=== PATIENT | female | born 1980 | race Caucasian/White ===

== ENCOUNTER 2017-08-24 11:34 | Emergency (ER) | payer OTHER ==
[2017-08-24] MEDS ORDERED: Sodium Chloride 0.9% 10 ML Syringe FLUSH PRN ×2 (12:23→13:45)
[2017-08-24] MEDS ORDERED: Morphine 2 MG/ML Syringe IVPUSH ONE ×2 (12:23→14:42)
[2017-08-24] MEDS ORDERED: Ondansetron 4 MG/2 ML SDV IVPUSH ONE (12:23)
[2017-08-24] MEDS ORDERED: Sodium Chloride 0.9% 1,000 ML IV ONE (12:23)
--- NOTE | 2017-08-24 12:44 | EDM.PDOC ---
<Evie Olvera - Last Filed: 08/24/17 12:28> ED HPI GENERAL MEDICAL PROBLEM - General Chief Complaint: Abdominal Pain Stated Complaint: LT SIDE PAIN Time Seen by Provider: 08/24/17 12:15 Source of Information: Reports: Patient History Limitations: Reports: No Limitations - History of Present Illness INITIAL COMMENTS - FREE TEXT/NARRATIVE: Patient is a 37 YO female who presents today for LLQ abdominal pain. The pain came on suddenly this morning around 0700. Described as a sharp stabbing pain. She states the intensity waxes and wanes but the pain is always there. Nothing is making the pain better. Any movement, lying flat, and ridding in the car on the way here made the pain worse. She reports nausea but no vomiting. She reports that she has been constipated with her last full BM being 3 days ago. She drank mag citrate this morning around 9 am and is now having diarrhea. She states this has not relieved the pain at all. She was able to eat a full meal last night with no pain. She denies blood in the stool. She does report history of kidney stone with previous stent placement. She states the current pain is different then what she experienced previously. She states she has been experiencing pain in the LLQ for about 6 months. She had a workup through primary care including blood work and CT scan. Per patient, everything was normal. She reports tubal ligation in 2012. LMP was 3 weeks ago. Left Abdomen Pain Score (Numeric/FACES): 8 - Related Data Allergies Allergy/AdvReac Type Severity Reaction Status Date / Time amoxicillin Allergy Airway Verified 08/24/17 11:44 Tightness Home Meds: Home Meds Cholecalciferol (Vitamin D3) [Vitamin D] 1,000 unit PO DAILY 08/24/17 [History] Montelukast [Singulair] 10 mg PO BEDTIME 08/24/17 [History] Omeprazole [priLOSEC OTC] 20 mg PO DAILY 08/24/17 [History] Vortioxetine Hydrobromide [Trintellix] 5 mg PO DAILY 08/24/17 [History] Zolpidem Tartrate [Ambien] 10 mg PO BEDTIME 08/24/17 [History] Past Medical History Gastrointestinal History: Reports: GERD Genitourinary History: Reports: Renal Calculus - Past Surgical History HEENT Surgical History: Reports: Adenoidectomy, Tonsillectomy Female Surgical History: Reports: Section, Ureteral Stent, Other ( See Below) (Tubal ligation 2012) Other Female Surgeries/Procedures: breast reduction Social & Family History - Tobacco Use Smoking Status *Q: Never Smoker - Caffeine Use Caffeine Use: Reports: Coffee, Soda - Recreational Drug Use Recreational Drug Use: No ED ROS GENERAL - Review of Systems Review Of Systems: See Below Constitutional: Reports: No Symptoms Respiratory: Reports: No Symptoms Cardiovascular: Reports: No Symptoms GI/Abdominal: Reports: Abdominal Pain, Constipation, Diarrhea, Nausea. Denies: Bloody Stool, Decreased Appetite, Distension, Vomiting : Reports: No Symptoms Musculoskeletal: Reports: No Symptoms Skin: Reports: No Symptoms Neurological: Reports: No Symptoms Psychiatric: Reports: No Symptoms ED EXAM, GI/ABD - Physical Exam Exam: See Below Exam Limited By: No Limitations General Appearance: Alert, WD/WN, Mild Distress Eyes: Bilateral: EOMI Head: Atraumatic Respiratory/Chest: No Respiratory Distress, Lungs Clear, Normal Breath Sounds Cardiovascular: Normal Peripheral Pulses, Regular Rate, Rhythm, No Murmur GI/Abdominal Exam: Normal Bowel Sounds, Soft, No Organomegaly, No Distention, Tender (LLQ below pelvic brim). No: Guarding, Rebound Back Exam: CVA Tenderness (L) (referred pain into LLQ), CVA Tenderness (R) ( referred pain into LLQ) Neurological: Alert, Oriented, CN II-XII Intact, Normal Cognition Psychiatric: Normal Affect, Normal Mood Skin Exam: Warm, Dry, Intact, Normal Color, No Rash Course - Vital Signs Last Recorded V/S: Last Vital Signs Temp 36.7 C 08/24/17 11:49 Pulse 89 08/24/17 11:49 Resp 20 08/24/17 11:49 BP 121/87 08/24/17 11:49 Pulse Ox 99 08/24/17 11:49 - Orders/Labs/Meds Orders: Active Orders 24 hr Category Date Time Status Peripheral IV Care [RC] . DIRECTED Care 08/24/17 12:25 Active UA W/MICROSCOPIC [URIN] Stat Lab 08/24/17 12:25 Ordered Peripheral IV Insertion Adult [OM.PC] Routine Oth 08/24/17 12:23 Ordered Labs: Laboratory Tests 04/0608/24/17 08/24/17 Range/Units 12:25 12:35 12:35 WBC 14.78 H (3.98-10.04) K/mm3 RBC 4.51 (3.98-5.22) M/mm3 Hgb 14.0 (11.2-15.7) gm/L Hct 42.0 (34.1-44.9) % MCV 93.1 (79.4-94.8) fl MCH 31.0 (25.6-32.2) pg MCHC 33.3 (32.2-35.5) g/dl RDW Std Deviation 42.9 (36.4-46.3) fL Plt Count 311 (182-369) K/mm3 MPV 9.8 (9.4-12.3) fl Neutrophils % (Manual) 69 H (40-60) % Band Neutrophils % 2 (0-10) % Lymphocytes % (Manual) 25 (20-40) % Atypical Lymphs % 0 % Monocytes % (Manual) 3 (2-10) % Eosinophils % (Manual) 1 (0.7-5.8) % Basophils % (Manual) 0 L (0.1-1.2) Platelet Estimate Adequate RBC Morph Comment Normal Sodium 140 (136-145) mEq/L Potassium 3.8 (3.5-5.1) mEq/L Chloride 103 (98-107) mEq/L Carbon Dioxide 28 (21-32) mEq/L Anion Gap 12.8 (5-15) BUN 15 (7-18) mg/dL Creatinine 0.8 (0.55-1.02) mg/dL Est Cr Clr Drug Dosing 92.72 mL/min Estimated GFR (MDRD) > 60 (>60) mL/min BUN/Creatinine Ratio 18.8 H (14-18) Glucose 98 (74-106) mg/dL Calcium 9.3 (8.5-10.1) mg/dL Total Bilirubin 0.6 (0.2-1.0) mg/dL AST 16 (15-37) U/L ALT 27 (14-59) U/L Alkaline Phosphatase 69 (46-116) U/L C-Reactive Protein (<1.0) mg/dL Total Protein 7.7 (6.4-8.2) g/dl Albumin 4.3 (3.4-5.0) g/dl Globulin 3.4 gm/dL Albumin/Globulin Ratio 1.3 (1-2) HCG, Qual (NEGATIVE) Urine Color Light yellow (Yellow) Urine Appearance Clear (Clear) Urine pH 7.5 (5.0-8.0) Ur Specific Zirconia 1.015 (1.005-1.030) Urine Protein Negative (Negative) Urine Glucose (UA) Negative (Negative) Urine Ketones Negative (Negative) Urine Occult Blood Negative (Negative) Urine Nitrite Negative (Negative) Urine Bilirubin Negative (Negative) Urine Urobilinogen 0.2 (0.2-1.0) Ur Leukocyte Esterase Negative (Negative) Urine RBC Not seen (0-5) /hpf Urine WBC 0-5 (0-5) /hpf Ur Epithelial Cells 5-10 H (0-5) /hpf Urine Bacteria Few (FEW) /hpf Urine Mucus Not seen (FEW) /hpf 08/24/17 08/24/17 Range/Units 12:35 12:35 WBC (3.98-10.04) K/mm3 RBC (3.98-5.22) M/mm3 Hgb (11.2-15.7) gm/L Hct (34.1-44.9) % MCV (79.4-94.8) fl MCH (25.6-32.2) pg MCHC (32.2-35.5) g/dl RDW Std Deviation (36.4-46.3) fL Plt Count (182-369) K/mm3 MPV (9.4-12.3) fl Neutrophils % (Manual) (40-60) % Band Neutrophils % (0-10) % Lymphocytes % (Manual) (20-40) % Atypical Lymphs % % Monocytes % (Manual) (2-10) % Eosinophils % (Manual) (0.7-5.8) % Basophils % (Manual) (0.1-1.2) Platelet Estimate RBC Morph Comment Sodium (136-145) mEq/L Potassium (3.5-5.1) mEq/L Chloride (98-107) mEq/L Carbon Dioxide (21-32) mEq/L Anion Gap (5-15) BUN (7-18) mg/dL Creatinine (0.55-1.02) mg/dL Est Cr Clr Drug Dosing mL/min Estimated GFR (MDRD) (>60) mL/min BUN/Creatinine Ratio (14-18) Glucose (74-106) mg/dL Calcium (8.5-10.1) mg/dL Total Bilirubin (0.2-1.0) mg/dL AST (15-37) U/L ALT (14-59) U/L Alkaline Phosphatase (46-116) U/L C-Reactive Protein 0.4 (<1.0) mg/dL Total Protein (6.4-8.2) g/dl Albumin (3.4-5.0) g/dl Globulin gm/dL Albumin/Globulin Ratio (1-2) HCG, Qual Negative (NEGATIVE) Urine Color (Yellow) Urine Appearance (Clear) Urine pH (5.0-8.0) Ur Specific Zirconia (1.005-1.030) Urine Protein (Negative) Urine Glucose (UA) (Negative) Urine Ketones (Negative) Urine Occult Blood (Negative) Urine Nitrite (Negative) Urine Bilirubin (Negative) Urine Urobilinogen (0.2-1.0) Ur Leukocyte Esterase (Negative) Urine RBC (0-5) /hpf Urine WBC (0-5) /hpf Ur Epithelial Cells (0-5) /hpf Urine Bacteria (FEW) /hpf Urine Mucus (FEW) /hpf Meds: Medications Discontinued Medications Generic Name Dose Route Start Last Admin Trade Name Freq PRN Reason Stop Dose Admin Diatrizoate Meglum/Diatrizoate Sod 90 ml 08/24/17 13:45 08/24/17 15:03 Gastrografin 37% PO 08/24/17 13:46 90 ml ONETIME ONE Administration Sodium Chloride 1,000 mls @ 999 mls/hr 08/24/17 12:23 08/24/17 12:44 Normal Saline IV 08/24/17 13:23 999 mls/hr ONETIME ONE Administration Iopamidol 100 ml 08/24/17 13:45 08/24/17 15:03 Isovue-300 (61%) IVPUSH 08/24/17 13:46 100 ml ONETIME ONE Administration Morphine Sulfate 2 mg 08/24/17 12:23 08/24/17 12:44 Morphine IVPUSH 08/24/17 12:24 2 mg ONETIME ONE Administration Morphine Sulfate 2 mg 08/24/17 14:42 08/24/17 14:46 Morphine IVPUSH 04/06/18 14:43 2 mg ONETIME ONE Administration Ondansetron HCl 4 mg 08/24/17 12:23 08/24/17 12:44 Zofran IVPUSH 08/24/17 12:24 4 mg ONETIME ONE Administration Sodium Chloride 10 ml 08/24/17 12:23 08/24/17 12:44 Saline Flush FLUSH 10 ml ASDIRECTED PRN Administration Keep Vein Open Sodium Chloride 10 ml 08/24/17 13:45 08/24/17 15:03 Saline Flush FLUSH 10 ml ONETIME PRN Administration IV FLUSH Departure - Departure Disposition: Home, Self-Care 01 Clinical Impression: Gastroenteritis - Discharge Information Instructions: Viral Gastroenteritis, Adult, [id number] Referrals: PCP,Not In Area [Primary Care Provider] - Jenny Bonner NP [Ordering Only Provider] - Forms: ED Department Discharge Additional Instructions: Recommend starting a probiotic. These are available [id number]. Clear fluids and a bland diet such as bread, crackers rice, applesauce, toast, egg whites, Etc. May advance to more normal diet in 2-3 days if tolerated. Follow-up with your primary care provider if you symptoms persist within one week. [id number] Tylenol or which as needed for pain relief. Please return to the ER for symptoms change or worsen. , - My Orders Last 24 Hours: My Active Orders 08/24/17 12:23 Peripheral IV Insertion Adult [OM.PC] Routine 08/24/17 12:25 Peripheral IV Care [RC] . DIRECTED UA W/MICROSCOPIC [URIN] Stat - Assessment/Plan Last 24 Hours: My Active Orders 08/24/17 12:23 Peripheral IV Insertion Adult [OM.PC] Routine 08/24/17 12:25 Peripheral IV Care [RC] . DIRECTED UA W/MICROSCOPIC [URIN] Stat <Sera Wang - Last Filed: 08/24/17 23:17> ED HPI GENERAL MEDICAL PROBLEM - History of Present Illness INITIAL COMMENTS - FREE TEXT/NARRATIVE: I have seen the patient and agree with history of present illness as documented by JOSE Osorio Course - Radiology Interpretation Free Text/Narrative:: CT abdomen and pelvis Technique: Multiple axial sections were obtained from above the dome of the diaphragm inferiorly to the pubic symphysis. Intravenous and oral contrast was utilized. Delayed images were also obtained through the bladder. Comparison: No previous study to correlate with. Findings: Small portion of the visualized lung bases are clear. Liver shows no focal parenchymal abnormality. Spleen appears within normal limits. Adrenal glands show no nodule. Kidneys show symmetric contrast enhancement without hydronephrosis or mass. Pancreas appears within normal limits. Gallbladder contains no calcified gallstones. Aorta shows no aneurysmal dilatation. No retroperitoneal adenopathy or mesenteric abnormalities are seen. Appendix is felt to be seen which is normal in size. Fluid is identified throughout the colon and within the rectum. Small area of enhancement is seen within the uterine fundus most likely representing small fibroid measuring 1.2 cm. Low density abnormalities within the cervix are seen which are felt compatible with nabothian cysts. No free fluid or inflammatory change is seen. Disc space narrowing and vacuum phenomena noted within the L5-S1 disc. No diverticuli are seen. Impression: 1. Fluid within the colon. Please correlate if patient has any symptoms of gastroenteritis/colitis/diarrhea. 2. CT study of the abdomen and pelvis otherwise shows nothing acute with incidental findings as noted above. - Re-Assessments/Exams Free Text/Narrative Re-Assessment/Exam: 08/24/17 16:33 I've seen and evaluated the patient. I agree with the history of present illness , review of systems and physical exam as documented by JOSE Osorio. I reviewed the labs and imaging with the patient. Will discharge her home with instructions for bowel rest. She is instructed to follow-up with her primary care provider for symptoms do not improve. Discharge instructions as documented. Departure - Departure Time of Disposition: 16:37 Condition: Fair
[2017-08-24] MEDS ORDERED: Diatrizoate Meglumine/Diatrizoate Sodium 37% 120 ML Bottle PO ONE (13:45)
[2017-08-24] MEDS ORDERED: Iopamidol 612 MG/ML 100 ML Bottle IVPUSH ONE (13:45)
--- NOTE | 2017-08-24 15:21 | CT ---
CT abdomen and pelvis Technique: Multiple axial sections were obtained from above the dome of the diaphragm inferiorly to the pubic symphysis. Intravenous and oral contrast was utilized. Delayed images were also obtained through the bladder. Comparison: No previous study to correlate with. Findings: Small portion of the visualized lung bases are clear. Liver shows no focal parenchymal abnormality. Spleen appears within normal limits. Adrenal glands show no nodule. Kidneys show symmetric contrast enhancement without hydronephrosis or mass. Pancreas appears within normal limits. Gallbladder contains no calcified gallstones. Aorta shows no aneurysmal dilatation. No retroperitoneal adenopathy or mesenteric abnormalities are seen. Appendix is felt to be seen which is normal in size. Fluid is identified throughout the colon and within the rectum. Small area of enhancement is seen within the uterine fundus most likely representing small fibroid measuring 1.2 cm. Low density abnormalities within the cervix are seen which are felt compatible with nabothian cysts. No free fluid or inflammatory change is seen. Disc space narrowing and vacuum phenomena noted within the L5-S1 disc. No diverticuli are seen. Impression: 1. Fluid within the colon. Please correlate if patient has any symptoms of gastroenteritis/colitis/diarrhea. 2. CT study of the abdomen and pelvis otherwise shows nothing acute with incidental findings as noted above. Diagnostic code #3
== END 2017-08-24 16:45 | disposition home or self-care (01) ==
LOC: JD.ED 11:34
DX: K52.9 Noninfective gastroenteritis and colitis, unspecified (principal); Z88.1 Allergy status to other antibiotic agents; Z79.899 Other long term (current) drug therapy
CPT/HCPCS: 36415; 74177; 80053; 81001; 84703; 85025; 86140; 96361; 96374; 96375; 96376; 99284; J2270; J2405; J7040; J7050; Q9963; Q9967